=== PATIENT | male | born 1980 | race Caucasian/White ===

== ENCOUNTER 2017-02-26 22:51 | Inpatient (IN) | payer OTHER ==
[2017-02-26 23:46] LABS: Basophils % (Auto) 0.3 % (0.0-1.8); Eosinophils % (Auto) 0.2 % (0.0-4.3); Hematocrit 42.5 % (35.5-45.6); Mean Corpuscular HGB Conc 33 % (32-34); Mean Corpuscular Volume 76 fl (84-94); Platelet Count 148 K/mm3 (140-440); Red Blood Count 5.58 M/mm3 (3.65-5.03); Red Cell Distribution Width 14.6 % (13.2-15.2); White Blood Count 3.9 K/mm3 (4.5-11.0)
[2017-02-26 23:51] LABS: Alanine Aminotransferase 39 units/L (7-56); Albumin 4.2 g/dL (3.9-5); Albumin/Globulin Ratio 1.4 %; Alkaline Phosphatase 52 units/L (35-129); Anion Gap 18 mmol/L; Blood Urea Nitrogen 22 mg/dL (9-20); Calcium 8.8 mg/dL (8.4-10.2); Carbon Dioxide 25 mmol/L (22-30); Chloride 100.3 mmol/L (98-107); Glucose 116 mg/dL (75-100); Potassium 4.5 mmol/L (3.6-5.0); Sodium 139 mmol/L (137-145); Total Protein 7.2 g/dL (6.3-8.2)
[2017-02-26 23:56] LABS: Mean Corpuscular Hemoglobin 25 pg (28-32)
[2017-02-27 00:03] LABS: Bilirubin,Urine NEG (Negative); Blood,Urine NEG (Negative); Ketones,Urine NEG (Negative); Leukocyte Esterase,Urine NEG (Negative); Nitrite,Urine NEG (Negative); Protein,Urine <15 mg/dL mg/dL (Negative); Urobilinogen,Urine < 2.0 mg/dL (<2.0); WBC,Urine < 1.0 /HPF (0.0-6.0)
[2017-02-27] MEDS ORDERED: NACL 0.9% 1000 ML 1,000 ML IV ONE (00:34)
[2017-02-27] MEDS ORDERED: TORADOL IV ONE (00:34)
[2017-02-27] MEDS ORDERED: ZOFRAN IV ONE (00:34)
[2017-02-27] MEDS ORDERED: MORPHINE IV ONE (00:35)
[2017-02-27] MEDS ORDERED: NACL ONE (01:08)
--- NOTE | 2017-02-27 01:40 | Emergency Department Report ---
ED Abdominal Pain HPI - General Chief Complaint: Abdominal Pain Stated Complaint: ABD PAIN Time Seen by Provider: 02/27/17 00:06 Source: EMS Mode of arrival: Stretcher Limitations: Language Barrier - History of Present Illness Initial Comments: 36-year-old male with no past medical history presents to the hospital complaining abdominal pain 3 days. Positive fever. Positive nausea and vomiting. Pain is generalized but greatest in the right lower quadrant. Worse with palpation. No alleviating factors. Severity scale (0 -10): 10 - Related Data Home Medications Medication Instructions Recorded Confirmed Last Taken No Known Home Medications [No 02/27/17 02/27/17 Unknown Reported Home Medications] Allergies Allergy/AdvReac Type Severity Reaction Status Date / Time No Known Allergies Allergy Verified 02/27/17 01:20 ED Review of Systems ROS: Stated complaint: ABD PAIN Other details as noted in HPI Comment: All other systems reviewed and negative Other: Constitutional: As per HPI Eyes: No eye pain visual changes or discharge ENT: No ear pain or throat pain Neck: Denies pain Respiratory: Mild cough Cardiovascular: Denies chest pain GI: As per HPI : Denies dysuria Musculoskeletal: Denies back pain Skin: Denies rash, lesions, erythema Neurologic: Denies headache Psychiatric: Denies suicidal ideation, hallucinations ED Past Medical Hx - Past Medical History Previous Medical History?: Yes Additional medical history: "abd problems" - Social History Smoking Status: Unknown if ever smoked Substance Use Type: None - Medications Home Medications: Home Medications Medication Instructions Recorded Confirmed Last Taken Type No Known Home Medications [No 02/27/17 02/27/17 Unknown History Reported Home Medications] ED Physical Exam - General Limitations: Language Barrier - Other Other exam information: General: No limitations, patient is alert in no acute distress Head exam: Atraumatic, normocephalic Eyes exam: Normal appearance, pupils equal reactive to light, extraocular movements intact ENT: Moist mucous membrane, normal oropharynx Neck exam: Normal inspection, full range of motion, no meningismus nontender Respiratory exam: Clear to auscultation bilateral, no wheezes, rales, crackles Cardiovascular: Mild tachycardia Abdomen: Soft, nondistended, generalized tenderness greatest in the right lower quadrant, with normal bowel sounds, no rebound, or guarding Extremity: Full range of motion normal inspection no deformity Back: Normal Inspection, full range of motion, no tenderness Neurologic: Alert, oriented x3, cranial nerves intact, no motor or sensory deficit Psychiatric: normal affect, normal mood Skin: Warm, dry, intact ED Course Vital Signs 02/26/17 02/27/17 02/27/17 23:07 02:40 04:24 Temperature 100.2 F H 99.8 F H Pulse Rate 105 H 97 H Respiratory 25 H 16 Rate Blood Pressure Blood Pressure 114/62 121/74 [Left] O2 Sat by Pulse 95 93 94 Oximetry 02/27/17 02/27/17 02/27/17 04:30 04:40 04:50 Temperature Pulse Rate 100 H 103 H 101 H Respiratory 19 26 H 23 Rate Blood Pressure 107/50 107/50 107/50 Blood Pressure [Left] O2 Sat by Pulse 94 97 97 Oximetry 02/27/17 02/27/17 05:00 05:10 Temperature Pulse Rate 101 H 100 H Respiratory 24 19 Rate Blood Pressure 106/54 106/54 Blood Pressure [Left] O2 Sat by Pulse 96 96 Oximetry - Reevaluation(s) Reevaluation #1: 02/27/17 01:41 Patient treated with Toradol, morphine, Zofran, and normal saline - Consultations Consultation #1: 02/27/17 04:42 Multiple calls placed to Dr. Hurst since 4:10 AM. Awaiting call back. ED Medical Decision Making - Lab Data Result diagrams: 02/26/17 23:17 02/26/17 23:17 Lab Results 02/26/17 02/26/17 02/26/17 Range/Units 23:17 23:17 23:48 WBC 3.9 L (4.5-11.0) K/mm3 RBC 5.58 H (3.65-5.03) M/mm3 Hgb 14.0 (11.8-15.2) gm/dl Hct 42.5 (35.5-45.6) % MCV 76 L (84-94) fl MCH 25 L (28-32) pg MCHC 33 (32-34) % RDW 14.6 (13.2-15.2) % Plt Count 148 (140-440) K/mm3 Lymph % (Auto) 20.3 (13.4-35.0) % Hamblen % (Auto) 1.0 (0.0-7.3) % Eos % (Auto) 0.2 (0.0-4.3) % Baso % (Auto) 0.3 (0.0-1.8) % Lymph # 0.8 L (1.2-5.4) K/mm3 Hamblen # 0.0 (0.0-0.8) K/mm3 Eos # 0.0 (0.0-0.4) K/mm3 Baso # 0.0 (0.0-0.1) K/mm3 Seg Neutrophils % 78.2 H (40.0-70.0) % Seg Neutrophils # 3.1 (1.8-7.7) K/mm3 Sodium 139 (137-145) mmol/L Potassium 4.5 (3.6-5.0) mmol/L Chloride 100.3 (98-107) mmol/L Carbon Dioxide 25 (22-30) mmol/L Anion Gap 18 mmol/L BUN 22 H (9-20) mg/dL Creatinine 1.0 (0.8-1.5) mg/dL Estimated GFR > 60 ml/min BUN/Creatinine Ratio 22.00 % Glucose 116 H (75-100) mg/dL Calcium 8.8 (8.4-10.2) mg/dL Total Bilirubin 0.80 (0.1-1.2) mg/dL AST 30 (5-40) units/L ALT 39 (7-56) units/L Alkaline Phosphatase 52 (35-129) units/L Total Protein 7.2 (6.3-8.2) g/dL Albumin 4.2 (3.9-5) g/dL Albumin/Globulin Ratio 1.4 % Urine Color Straw (Yellow) Urine Turbidity Clear (Clear) Urine pH 6.0 (5.0-7.0) Ur Specific Candor 1.017 (1.003-1.030) Urine Protein <15 mg/dl (Negative) mg/dL Urine Glucose (UA) Neg (Negative) mg/dL Urine Ketones Neg (Negative) mg/dL Urine Blood Neg (Negative) Urine Nitrite Neg (Negative) Urine Bilirubin Neg (Negative) Urine Urobilinogen < 2.0 (<2.0) mg/dL Ur Leukocyte Esterase Neg (Negative) Urine WBC (Auto) < 1.0 (0.0-6.0) /HPF Urine RBC (Auto) 1.0 (0.0-6.0) /HPF - Radiology Data Radiology results: report reviewed (CT abdomen and pelvis IV contrast: Early acute appendicitis) - Medical Decision Making Zosyn given for acute appendicitis. Additional IV fluids ordered. Nothing by mouth orders. Awaiting surgeon call back. Will place bridge orders Translation line was used by RN to explain patient's diagnosis, recent information, M.D. for surgery As of 5:39 AM patient has a bed upstairs still awaiting callback from surgeon - Differential Diagnosis appendicitis, gastroenteritis, diverticulitis, UTI, renal colic Critical Care Time: No Critical care attestation.: If time is entered above; I have spent that time in minutes in the direct care of this critically ill patient, excluding procedure time. ED Disposition Clinical Impression: Acute appendicitis Disposition: DC-09 OP ADMIT IP TO THIS HOSP Is pt being admited?: Yes Condition: Stable Time of Disposition: 04:43 (Dr hurst/surgery)
[2017-02-27] MEDS ORDERED: ZOSYN/NS 4.5GM/100ML 4.5 GM/100 ML VIAL IV ONE (04:07)
--- NOTE | 2017-02-27 04:09 | Cat Scan Report ---
FINAL REPORT PROCEDURE: CT ABDOMEN PELVIS W CON TECHNIQUE: Computerized axial tomography of the abdomen and pelvis was performed after the IV injection of iodinated nonionic contrast. HISTORY: rlq pain, fever, generalized pain COMPARISON: No prior studies are available for comparison. FINDINGS: Visualized lower thorax: There is atelectasis at the left lung base.. Liver: Normal size and attenuation. Spleen: Normal size and attenuation. Gallbladder and biliary system: Normal. Pancreas: Normal. Adrenals: Normal. Kidneys: There is a 2 centimeters cyst at the upper pole of the left kidney. There are no kidney stones. There is no hydronephrosis.. GI tract: The appendix is thickened at a maximum of 1 centimeter in diameter. There are inflammatory changes of the surrounding fat. Findings are consistent with early appendicitis. The stomach, small bowel and colon are unremarkable per Lymph nodes and mesentery: There are borderline prominent mesenteric lymph nodes which are most likely reactive.. Vasculature: Normal. Bladder: Normal. Reproductive organs: Normal. Peritoneum: There is no ascites, free air, abscess or mass.. Musculoskeletal structures: No significant abnormality. Other: None. IMPRESSION: Early acute appendicitis. There is no perforation or abscess. Dr. Quinteros was notified by telephone at 4 a.m. Eastern time.
[2017-02-27] MEDS ORDERED: NACL 0.9% 1000 ML 1,000 ML IV SCH (05:00)
[2017-02-27] MEDS ORDERED: ZOFRAN IV PRN (05:50)
[2017-02-27] MEDS: D5/0.45NS 1,000 ML IV SCH (06:31)
--- NOTE | 2017-02-27 07:34 | Admit Criteria Form ---
Admission Criteria Documentation: ABDOMINAL PAIN Clinical Indications for Admission to Inpatient Care (Place 'X' for any and all applicable criteria): Admission is indicated for ANY ONE of the following(1)(2)(3)(4)(5): [X]I. Inpatient admission required rather than observation care (Also use Abdominal Pain: Observation Care, as appropriate) because of ANY ONE of the following: [X]a) Severe pain requiring acute inpatient management [ ]b) Identification of etiology/finding that requires inpatient care (eg, aortic dissection, free air) [ ]c) Absent bowel sounds with complete ileus(6) [ ]d) Suspected toxic megacolon [ ]e) Severe electrolyte abnormalities requiring inpatient care [ ]f) High fever or infection requiring inpatient admission as indicated by ANY ONE of following(7)(8): [ ] i) Appropriate outpatient or observational care antimicrobial treatment unavailable, not effective, or not feasible [ ] ii) Documented bacteremia [ ] iii) Temperature > 104.9 degrees F (oral) [ ] iv) T >103.1 F (oral) or < 96.8 F(rectal) that does not respond to all emergency treatment measures [ ]g) Signs of intestinal obstruction [B] [ ]h) Hemodynamic instability [ ]i) IV fluid to replace significant ongoing losses (greater than 3 L/m2 per day) (12)(13) [ ]j) Percutaneous or open drainage (eg, abscess, biliary tract ) procedures [ ]k) Parenteral nutrition regimen that must be implemented on inpatient basis [ ]l) Other condition,treatment or monitoring requiring inpatient admission. [ ]II. Peritoneal signs present [ ]III. Surgery needed that cannot be performed on an ambulatory basis. [X]IV. Evaluation requires patient to not eat or drink for extended period ( eg, more than 24 hours). [ ]V. Contraindications and/or Inappropriate clinical situations for Observational Care in patients with abdominal pain, when ANY ONE of the following is required: [ ]a) Thorough evaluation is required to prevent catastrophic events due to delays in diagnosing (e.g.Mesenteric ischemia) 1,3 [ ]b) Patient with severe pathology or with chronic symptoms unlikely to improve in the ED stay (3) [ ]. General contraindications and/or Inappropriate clinical situations for Observational Care in patients with abdominal pain, when ANY ONE of the following is required: [ ]a) Prediction of prolongation of LOS based on ANY ONE of the following may be considered as a contraindication for observational care 2, 3, 4, 5, 6, 7, 8, 9, 10, 11 [ ]i) Age > 65 yrs. [ ]ii) Patient arriving by ambulance [ ]iii) Patient with high acuity [ ]iv) Patient requiring vital sign monitoring [ ]v) Patient on IV medication [ ]b) Systolic blood pressures 180mmHg 3,12 [ ]c) Patient with altered mental status including delirium and other alteration of consciousness, (3) [ ]d) Patient whose discharge disposition will be to a half-way home or rehabilitation home should not be managed in Emergency Department Observation Unit. CMS rule requires 3 days hospital stay before such placement.3,13 [ ]e) Patient with failure to thrive due to broad array of etiologies 3,16,17 [ ]f) Inability to ambulate 3,14 Extended stay beyond goal length of stay may be needed for(2)(3): [ ]a) Persistent abdominal pain with suspected intra-abdominal process [ ]b) Diagnosed condition requiring continued stay (e.g., pancreatitis, complicated diverticulitis) [ ]c) Surgery (e.g., colectomy) The original [facility] content created by [employer] has been revised. The portions of the content which have been revised are identified through the use of italic text or in bold, and [facility] has neither reviewed nor approved the modified material.All other unmodified content is copyright [facility]. Please see references footnoted in the original [facility] edition 2016 Admission Criteria Met: Yes
[2017-02-27] MEDS: FLAGYL 500 MG/100 ML 500 MG/100 ML BAG IV SCH ×3 (07:39→21:55)
[2017-02-27] MEDS ORDERED: ZOSYN/NS 2.25 GM/50ML 2.25 GM/50 ML BAG IV SCH (08:00)
[2017-02-27] MEDS: MORPHINE IV PRN ×2 (08:18→19:01)
[2017-02-27] MEDS ORDERED: SUBLIMAZE ONE (13:10)
[2017-02-27] MEDS ORDERED: DILAUDID ONE (13:10)
[2017-02-27] MEDS ORDERED: DIPRIVAN 10 MG/ML IV ONE (13:10)
--- NOTE | 2017-02-27 13:12 | Anesthesia Day of Surgery ---
Anesthesia Day of Surgery - Day of Surgery Patient Examined: Yes Patient H&P Reviewed: Yes Patient is NPO: Yes
--- NOTE | 2017-02-27 13:12 | Anesthesia Consultation ---
Anesthesia Consult and Med Hx Date of service: 02/27/17 - Airway Anesthetic Teeth Evaluation: Good ROM Head & Neck: Adequate Mental/Hyoid Distance: Adequate Mallampati Class: Class II Intubation Access Assessment: Probably Good - Pre-Operative Health Status ASA Pre-Surgery Classification: ASA2, Emergency Proposed Anesthetic Plan: General - Pulmonary Hx Asthma: No Hx Pneumonia: No - Endocrine Hx End Stage Renal Disease: No - Other Systems Hx Obesity: Yes (BMI 39.2) - Additional Comments Anesthesia Medical History Comments: acute appendicitis
[2017-02-27] MEDS ORDERED: ZEMURON IV ONE (13:13)
[2017-02-27] MEDS ORDERED: DECADRON ONE (13:13)
[2017-02-27] MEDS ORDERED: ZOFRAN ONE (13:13)
[2017-02-27] MEDS ORDERED: BLOXIVERZ ONE (13:13)
[2017-02-27] MEDS ORDERED: XYLOCAINE MPF 2% ONE (13:14)
[2017-02-27] MEDS ORDERED: ROBINUL ONE ×2 (13:14)
[2017-02-27] MEDS ORDERED: MARCAINE 0.5% 30 ML INFILTRATI ONE (13:51)
[2017-02-27] MEDS ORDERED: VERSED IV NR (14:00)
[2017-02-27] MEDS ORDERED: PEPCID IV NR (14:00)
[2017-02-27] MEDS ORDERED: LACTATED RINGERS 1,000 ML IV SCH (14:00)
[2017-02-27] MEDS ORDERED: ePHEDrine SULFATE ONE (14:02)
[2017-02-27] MEDS ORDERED: NACL 0.9% IR ONE (14:25)
[2017-02-27] MEDS ORDERED: MARCAINE 0.5% INFILTRATI ONE (14:26)
[2017-02-27] MEDS: DILAUDID IV PRN ×2 (15:53→21:26)
[2017-02-27] MEDS: ZOSYN/NS 4.5GM/100ML 4.5 GM/100 ML VIAL IV SCH ×2 (17:17→22:26)
--- NOTE | 2017-02-27 17:20 | Post Anesthesia Evaluation ---
- Post Anesthesia Evaluation Patient Participated: Yes Airway Patent: Yes Stable Respiratory Function: Yes Nausea/Vomiting: No Temp > 96.8F: Yes Pain Manageable: Yes Adequeate Hydration: Yes Anesthesia Complications: No
--- NOTE | 2017-02-27 19:36 | Operative Report ---
PREOPERATIVE DIAGNOSIS: Acute appendicitis. POSTOPERATIVE DIAGNOSIS: Acute appendicitis, retrocecal. SURGERY: Appendectomy. ANESTHESIA: General. BLOOD LOSS: Minimal. FINDINGS: The patient had severely inflamed appendix and ____ cm. I had to remove it retrogradely. ANESTHESIA: General. BLOOD LOSS: Minimal. FINDINGS: As above. DESCRIPTION OF PROCEDURE: With the patient in supine position, prepped and draped in usual fashion. I made a small incision in the right lower quadrant deep subcutaneous tissue all the way down to the fascia, which was incised and the peritoneum was opened. Once I was there, I could see the cecum, could not see the appendix, so I had to remove the appendix that was retrogradely. So I put the suture ligature of 3-0 Vicryl at its base x2 and then go slowly retrogradely dissecting the mesoappendix having good hemostasis using electrocautery. I then did put a stitch of 3-0 Vicryl to control bleeding. I was well satisfied. I left a drain in the area. Then, the wound was closed in layers. I used 3-0 Vicryl continuous for the peritoneum and interrupted with #1 Vicryl and the skin with jenny. The patient was then transferred to the recovery room in good condition. JOB# [id number] NAM/HARPER
[2017-02-28] MEDS: FLAGYL 500 MG/100 ML 500 MG/100 ML BAG IV SCH ×3 (04:35→14:35)
[2017-02-28] MEDS: ZOSYN/NS 4.5GM/100ML 4.5 GM/100 ML VIAL IV SCH ×2 (06:15→15:08)
[2017-02-28] MEDS: MORPHINE IV PRN ×2 (09:15→15:17)
--- NOTE | 2017-02-28 11:53 | Progress Note ---
Subjective Date of service: 02/27/17 Interval history: Patient is ambulating well, voiding, minimal pain, no anesthesia complications. Objective - Constitutional Vitals: Vital Signs - 12hr 02/28/17 02/28/17 02/28/17 03:45 05:17 07:54 Temperature 98.7 F 98.7 F 98.4 F Pulse Rate 71 70 61 Respiratory 20 2 L 18 Rate Blood Pressure 106/60 106/60 102/57 O2 Sat by Pulse 100 100 99 Oximetry 02/28/17 07:55 Temperature 98.4 F Pulse Rate 61 Respiratory 18 Rate Blood Pressure 102/57 O2 Sat by Pulse 99 Oximetry - Labs CBC & Chem 7: 02/26/17 23:17 02/26/17 23:17
[2017-02-28] MEDS: D5/0.45NS 1,000 ML IV SCH (12:44)
--- NOTE | 2017-02-28 12:45 | Progress Note ---
Subjective Narrative: c/om incisional pain wound OK home today ? passing flatus . will give MOM. Objective Vital Signs - 12hr 02/28/17 02/28/17 02/28/17 03:45 05:17 07:54 Temperature 98.7 F 98.7 F 98.4 F Pulse Rate 71 70 61 Respiratory 20 2 L 18 Rate Blood Pressure 106/60 106/60 102/57 O2 Sat by Pulse 100 100 99 Oximetry 02/28/17 02/28/17 07:55 12:11 Temperature 98.4 F 98.3 F Pulse Rate 61 71 Respiratory 18 18 Rate Blood Pressure 102/57 111/68 O2 Sat by Pulse 99 100 Oximetry - Labs 02/26/17 23:17 02/26/17 23:17
[2017-02-28 13:52] LABS: Hematocrit 40.2 % (35.5-45.6); Hemoglobin 12.9 gm/dl (11.8-15.2); Mean Corpuscular HGB Conc 32 % (32-34); Mean Corpuscular Volume 77 fl (84-94); Platelet Count 133 K/mm3 (140-440); Red Blood Count 5.24 M/mm3 (3.65-5.03); Red Cell Distribution Width 14.8 % (13.2-15.2); White Blood Count 7.3 K/mm3 (4.5-11.0)
[2017-02-28 13:58] LABS: Mean Corpuscular Hemoglobin 25 pg (28-32)
[2017-02-28] MEDS ORDERED: MILK OF MAGNESIA PO ONE (14:00)
[2017-02-28 15:05] LABS: Blastocytes % (Manual) 0 %; Eosinophils % (Manual) 0 % (0.0-4.3); RBC Morphology Normal
[2017-02-28 15:06] LABS: Diff Status Complete; Platelet Estimate Consistent w Auto
[2017-02-28 16:02] VITALS: BP 112/66
[2017-02-28] MEDS ORDERED: FLEET PR ONE (17:00)
== END 2017-02-28 17:30 | disposition home or self-care (01) | DRG 343 ==
LOC: ED 22:51 → 2B-SURG 02-27 04:44
PROVIDERS: ADMIT Surgery; ATTEND Surgery
PROC: 0DTJ0ZZ Resection of Appendix, Open Approach (ICD-10-PCS; principal; 2017-02-27)
DX: K35.80 Unspecified acute appendicitis (principal); E66.9 Obesity, unspecified; Z68.39 Body mass index [BMI] 39.0-39.9, adult
CPT/HCPCS: 36415; 74177; 80053; 81001; 85007; 85025; 88304; 96361; 96365; 96375; J1100; J1170; J1885; J2250; J2270; J2405; J2543; J2704; J2710; J3010; J7030; J7120; Q9967